=== PATIENT | female | born 1975 | race Caucasian/White ===

== ENCOUNTER 2016-09-17 18:04 | Emergency (ER) | payer OTHER | END 2016-09-17 18:48 | disposition home or self-care (01) | LOC: ER 18:04 | DX: M25.571 Pain in right ankle and joints of right foot (principal); F17.210 Nicotine dependence, cigarettes, uncomplicated; Z79.899 Other long term (current) drug therapy; Z88.1 Allergy status to other antibiotic agents; Z88.5 Allergy status to narcotic agent ==

== ENCOUNTER 2016-09-27 14:22 | Emergency (ER) | payer OTHER | END 2016-09-27 15:03 | disposition home or self-care (01) | LOC: ER 14:22 | DX: J06.9 Acute upper respiratory infection, unspecified (principal); F17.210 Nicotine dependence, cigarettes, uncomplicated; Z79.01 Long term (current) use of anticoagulants; Z79.899 Other long term (current) drug therapy; Z88.1 Allergy status to other antibiotic agents; Z88.5 Allergy status to narcotic agent | CPT/HCPCS: 87502 ==

== ENCOUNTER 2016-10-10 18:53 | Emergency (ER) | payer OTHER | END 2016-10-10 23:05 | disposition home or self-care (01) | LOC: ER 18:53 | DX: S93.401A Sprain of unspecified ligament of right ankle, initial encounter (principal); D68.9 Coagulation defect, unspecified; R60.0 Localized edema; I10 Essential (primary) hypertension; E66.9 Obesity, unspecified; F17.210 Nicotine dependence, cigarettes, uncomplicated; Z90.49 Acquired absence of other specified parts of digestive tract; Z79.01 Long term (current) use of anticoagulants; Z88.1 Allergy status to other antibiotic agents; Z88.5 Allergy status to narcotic agent; X50.0XXA Overexertion from strenuous movement or load, initial encounter | CPT/HCPCS: 36415 ==

== ENCOUNTER 2016-12-01 17:51 | Emergency (ER) | payer OTHER | END 2016-12-01 19:51 | disposition home or self-care (01) | LOC: ER 17:51 | DX: N93.8 Other specified abnormal uterine and vaginal bleeding (principal); E03.9 Hypothyroidism, unspecified; E66.9 Obesity, unspecified; F17.210 Nicotine dependence, cigarettes, uncomplicated; Z90.49 Acquired absence of other specified parts of digestive tract; Z98.51 Tubal ligation status; Z79.01 Long term (current) use of anticoagulants; Z88.1 Allergy status to other antibiotic agents; Z88.5 Allergy status to narcotic agent | CPT/HCPCS: 36415; 96361; 96374; 96375; J1885 ==